=== PATIENT | female | born 1970 | race Caucasian/White ===

== ENCOUNTER → 2024-06-27 15:58 | Outpatient (REF) | payer BC, SELFPAY | LOC: WDC 15:58 | PROVIDERS: ATTENDING PHYSICIAN Family Medicine | DX: Z12.31 Encounter for screening mammogram for malignant neoplasm of breast (principal) | CPT/HCPCS: 77063; 77067 ==

== ENCOUNTER → 2025-07-12 15:30 | Outpatient (REF) | payer BC, SELFPAY | LOC: WDC 15:30 | PROVIDERS: ATTENDING PHYSICIAN Family Medicine | DX: Z12.31 Encounter for screening mammogram for malignant neoplasm of breast (principal) | CPT/HCPCS: 77063; 77067 ==